=== PATIENT | male | born 1980 | race Caucasian/White ===

== ENCOUNTER 2024-09-28 23:20 | Inpatient (IN) | payer OTHER ==
[2024-09-29 00:49] LABS: VENOUS BASE EXCESS 1.4 mmol/L (-2-2); VENOUS O2 SATURATION 95.1 % (70-80); VENOUS PCO2 40.3 mmHg (38-52); VENOUS PH 7.425 (7.310-7.410)
[2024-09-29 01:26] LABS: BASO % 1.1 % (0-2.0); EOS % 2.5 % (0-4.5); HEMATOCRIT 38.3 % (35.4-49); HEMOGLOBIN 12.8 GM/dL (11.7-16.9); LYMPH % 28.6 % (8-40); MCH 33.1 pg (25.7-33.7); MCHC 33.5 g/dl (32.0-35.9); MEAN CELL VOLUME 98.9 fl (80-96); MEAN PLT VOLUME 7.5 fl (7.5-11.1); NEUT % 58.8 % (42.8-82.8); PLATELET COUNT 114 10^3/uL (134-434); RBC 3.87 M/mm3 (4.00-5.60); RDW 13.5 % (11.9-15.9); WHITE BLOOD COUNT 5.8 K/mm3 (4.0-10.0)
[2024-09-29 01:40] LABS: POTASSIUM 3.5 mmol/L (3.5-5.1)
[2024-09-29 01:42] LABS: ALBUMIN 3.4 g/dl (3.4-5.0); BLOOD UREA NITROGEN 8.1 mg/dL (7-18); CALCIUM 8.2 mg/dL (8.5-10.1); MAGNESIUM 2.1 mg/dL (1.8-2.4)
[2024-09-29 01:45] LABS: CREATININE 0.8 mg/dL (0.55-1.3)
[2024-09-29 01:46] LABS: PHOSPHOROUS 1.9 mg/dL (2.5-4.9)
[2024-09-29 01:47] LABS: BILIRUBIN,TOTAL 0.8 mg/dL (0.2-1)
[2024-09-29 01:49] LABS: TOT PROT 7.2 g/dl (6.4-8.2)
[2024-09-29 02:24] LABS: INR 1.19 (0.83-1.09); PROTHROMBIN TIME (PATIENT) 13.6 SEC (9.7-13.0)
[2024-09-29 02:27] LABS: ACTIVATED PTT 32.5 SECONDS (25.2-36.5)
[2024-09-29 02:38] LABS: HIV INTERPRETATION NEGATIVE (NEGATIVE)
[2024-09-29] MEDS ORDERED: LACTULOSE 20 GM/30 ML UDC (FOR ORAL USE ONLY) ONE ×2 (02:47→02:48)
[2024-09-29] MEDS: LACTULOSE 20 GM/30 ML UDC (FOR ORAL USE ONLY) PO ONE (02:52)
[2024-09-29] MEDS: LACTULOSE 20 GM/30 ML UDC (FOR ORAL USE ONLY) PO SCH (05:58)
[2024-09-29] MEDS ORDERED: LORazepam 1 MG TABLET PO PRN (06:23)
[2024-09-29] MEDS ORDERED: LORazepam 2 MG/ML SDV VIAL IVPUSH PRN (06:37)
[2024-09-29] MEDS ORDERED: LORazepam 2 MG/ML SDV VIAL ONE (06:44)
[2024-09-29] MEDS: SODIUM CHLORIDE 1,000 ML IV SCH (06:50)
[2024-09-29] MEDS: LORazepam 1 MG TABLET PO SCH (06:50)
[2024-09-29] MEDS: LORazepam 2 MG/ML SDV VIAL IVPUSH ONE (06:50)
[2024-09-29 07:44] LABS: BASO % 0.8 % (0-2.0); EOS % 3.1 % (0-4.5); HEMOGLOBIN 12.9 GM/dL (11.7-16.9); LYMPH % 26.4 % (8-40); MCH 34.1 pg (25.7-33.7); MCHC 34.8 g/dl (32.0-35.9); MEAN CELL VOLUME 98.1 fl (80-96); MEAN PLT VOLUME 7.6 fl (7.5-11.1); MONO % 8.8 % (3.8-10.2); NEUT % 60.9 % (42.8-82.8); PLATELET COUNT 100 10^3/uL (134-434); RBC 3.77 M/mm3 (4.00-5.60); RDW 13.4 % (11.9-15.9); WHITE BLOOD COUNT 4.3 K/mm3 (4.0-10.0)
[2024-09-29 07:55] LABS: POTASSIUM 3.5 mmol/L (3.5-5.1)
[2024-09-29 07:57] LABS: ALBUMIN 3.4 g/dl (3.4-5.0); BLOOD UREA NITROGEN 7.2 mg/dL (7-18)
[2024-09-29 08:00] LABS: CREATININE 0.8 mg/dL (0.55-1.3)
[2024-09-29 08:02] LABS: BILIRUBIN,TOTAL 0.8 mg/dL (0.2-1); TOT PROT 7.2 g/dl (6.4-8.2)
[2024-09-29] MEDS: FOLIC ACID INJECTION - 1 MG, THIAMINE HCL 100 MG, MULTIVIT INJECTION ADULT 10 ML in SOD... IVPB ONE (09:17)
[2024-09-29] MEDS ORDERED: NAPH,MB-DB/K PH,MBDB POWDER PACKET ONE (11:00)
[2024-09-29] MEDS: NAPH,MB-DB/K PH,MBDB POWDER PACKET PO ONE (11:03)
[2024-09-29] MEDS: THIAMINE 100 MG TABLET PO SCH (11:05)
[2024-09-29] MEDS: FOLIC ACID 1 MG TABLET (FP) PO SCH (11:05)
[2024-09-29] MEDS ORDERED: LACTULOSE 20 GM/30 ML UDC (FOR ORAL USE ONLY) PO SCH (14:00)
[2024-09-29 14:44] LABS: URINE APPEARANCE CLEAR; URINE BILIRUBIN NEGATIVE (NEGATIVE); URINE COLOR YELLOW; URINE GLUCOSE (UA) NEGATIVE (NEGATIVE); URINE KETONE NEGATIVE (NEGATIVE); URINE LEUK ESTERASE NEGATIVE (NEGATIVE); URINE NITRITE NEGATIVE (NEGATIVE); URINE PROTEIN NEGATIVE (NEGATIVE)
[2024-09-29 15:03] LABS: OPIATES, URI NEGATIVE (NEGATIVE)
[2024-09-29 15:04] LABS: COCAINE, UR NEGATIVE (NEGATIVE); METHADONE, UR NEGATIVE (NEGATIVE); PHENCYCLIDINE,URINE NEGATIVE (NEGATIVE)
[2024-09-29 15:05] LABS: URINE AMPHETAMINES NEGATIVE (NEGATIVE)
[2024-09-29 15:06] LABS: URINE BARBITURATES NEGATIVE (NEGATIVE)
[2024-09-29 15:09] LABS: URINE BENZODIAZEPINES NEGATIVE (NEGATIVE)
[2024-09-29 18:22] VITALS: BMI 46.7
[2024-09-29] MEDS ORDERED: RIFAXIMIN 550 MG TABLET PO SCH (22:00)
[2024-09-29] MEDS: LORazepam 2 MG/ML SDV VIAL IVPUSH PRN (23:01)
[2024-09-30] MEDS ORDERED: LORazepam 1 MG TABLET PO SCH (05:00)
[2024-09-30 06:02] VITALS: RESP 18
[2024-09-30 07:53] LABS: BASO % 1.4 % (0-2.0); HEMATOCRIT 39.3 % (35.4-49); HEMOGLOBIN 13.1 GM/dL (11.7-16.9); MCH 32.9 pg (25.7-33.7); MCHC 33.5 g/dl (32.0-35.9); MEAN CELL VOLUME 98.4 fl (80-96); MEAN PLT VOLUME 7.7 fl (7.5-11.1); MONO % 8.9 % (3.8-10.2); NEUT % 62.7 % (42.8-82.8); PLATELET COUNT 93 10^3/uL (134-434); RBC 3.99 M/mm3 (4.00-5.60); RDW 13.3 % (11.9-15.9)
[2024-09-30 08:07] LABS: POTASSIUM 3.6 mmol/L (3.5-5.1)
[2024-09-30 08:12] LABS: BLOOD UREA NITROGEN 8.1 mg/dL (7-18)
[2024-09-30 08:14] LABS: CALCIUM 8.3 mg/dL (8.5-10.1)
[2024-09-30 08:15] LABS: ALBUMIN 3.1 g/dl (3.4-5.0); MAGNESIUM 1.8 mg/dL (1.8-2.4)
[2024-09-30 08:17] LABS: CREATININE 0.7 mg/dL (0.55-1.3); PHOSPHOROUS 2.7 mg/dL (2.5-4.9)
[2024-09-30 08:18] LABS: BILIRUBIN,TOTAL 2.3 mg/dL (0.2-1)
[2024-09-30 08:19] LABS: TOT PROT 6.9 g/dl (6.4-8.2)
[2024-09-30 08:21] LABS: INR 1.35 (0.83-1.09); PROTHROMBIN TIME (PATIENT) 15.4 SEC (9.7-13.0)
[2024-09-30 13:00] LABS: BILIRUBIN,DIRECT 0.6 mg/dL (0.0-0.2)
[2024-09-30 15:33] VITALS: BP 147/84; PULSE 101; TEMP 98
[2024-10-01] MEDS ORDERED: LORazepam 0.5 MG TABLET PO PRN
[2024-10-01] MEDS ORDERED: LORazepam 0.5 MG TABLET PO SCH (05:00)
[2024-10-02] MEDS ORDERED: LORazepam 0.5 MG TABLET PO ONE (05:00)
== END 2024-09-30 16:00 | disposition left against medical advice (07) | DRG 442 ==
LOC: JER 23:20 → JERBED 09-29 04:21 → J4W 09-29 16:40
PROVIDERS: ADMIT Internal Medicine; ATTEND Internal Medicine
DX: K76.82 Hepatic encephalopathy (principal); F10.239 Alcohol dependence with withdrawal, unspecified; Z68.42 Body mass index [BMI] 45.0-49.9, adult; K70.30 Alcoholic cirrhosis of liver without ascites; I10 Essential (primary) hypertension; D69.6 Thrombocytopenia, unspecified; E78.5 Hyperlipidemia, unspecified; R41.82 Altered mental status, unspecified; R31.9 Hematuria, unspecified; E66.01 Morbid (severe) obesity due to excess calories; R00.0 Tachycardia, unspecified
CPT/HCPCS: 0241U-QW; 36415; 71045-TC-FY; 71250-TC; 74177-TC; 76705-TC; 80053; 80307; 81003; 82140; 82248; 82803; 83605; 83690; 83735; 84100; 84484; 85025; 85610; 85730; 86480; 86704; 86708; 86803; 86850; 86900; 86901; 87040; 87081; 87340; 87389; 87517; 93005; 93010; 99285-25; Q9967

== ENCOUNTER 2025-03-25 22:45 | Emergency (ER) | payer OTHER ==
[2025-03-25 22:52] VITALS: RESP 20; BMI 43.2
[2025-03-26 00:14] LABS: ABSOLUTE IMMATURE GRANULOCYTES 0.01 x10^3/uL (0.0-0.031); BASOPHILS # 0.07 x10^3/uL (0.01-0.08); EOSINOPHILS # 0.21 x10^3/uL (0.04-0.54); HEMOGLOBIN 12.3 g/dL (13.7-17.5); MCHC 33.2 g/dl (32.3-36.5); MEAN CELL VOLUME 102.2 fl (79.0-92.2); MEAN PLT VOLUME 9.5 fl (9.4-12.4); MONOCYTE # 0.57 x10^3/uL (0.30-0.82); MONOCYTE % 8.3 % (5.3-12.2); PLATELET COUNT 87 x10^3/uL (163-337); RDW 14.1 % (12.1-15.9)
[2025-03-26 00:16] LABS: PH,URINE 6.5 (5.0-8.0); URINE APPEARANCE CLEAR; URINE BILIRUBIN 1+ (NEGATIVE); URINE COLOR DK YELLOW; URINE GLUCOSE (UA) NEGATIVE (NEGATIVE); URINE KETONE TRACE (NEGATIVE); URINE LEUK ESTERASE NEGATIVE (NEGATIVE); URINE NITRITE NEGATIVE (NEGATIVE); URINE PROTEIN NEGATIVE (NEGATIVE); URINE UROBILINOGEN 4.0 E.U/dl mg/dL (0.2-1.0)
[2025-03-26] MEDS ORDERED: PANTOPRAZOLE SODIUM 40 MG VIAL ONE (00:27)
[2025-03-26] MEDS: PANTOPRAZOLE SODIUM 40 MG VIAL IVPUSH ONE (00:33)
[2025-03-26 00:35] LABS: POTASSIUM 3.1 mmol/L (3.5-5.1)
[2025-03-26 00:37] LABS: CALCIUM 9.1 mg/dL (8.5-10.1)
[2025-03-26 00:38] LABS: BLOOD UREA NITROGEN 8.5 mg/dL (7-18)
[2025-03-26 00:40] LABS: CREATININE 0.9 mg/dL (0.55-1.3)
[2025-03-26 00:42] LABS: BILIRUBIN,TOTAL 2.5 mg/dL (0.2-1); TOT PROT 7.9 g/dl (6.4-8.2)
[2025-03-26 00:47] VITALS: BP 108/55; PULSE 102; TEMP 98.4
[2025-03-26] MEDS ORDERED: POTASSIUM CHLORIDE ORAL LIQUID 20 MEQ/15 ML ONE (01:21)
[2025-03-26] MEDS: POTASSIUM CHLORIDE ORAL LIQUID 20 MEQ/15 ML PO ONE (01:22)
[2025-03-26 01:41] LABS: HCV DIAGNOSTIC IN-HOUSE W/RFLX NON-REACTIVE (NONREACTIVE); HIV INTERPRETATION NEGATIVE (NEGATIVE)
== END 2025-03-26 01:32 | disposition home or self-care (01) ==
LOC: JER 22:45
PROC: 3E033GC Introduction of Other Therapeutic Substance into Peripheral Vein, Percutaneous Approach (ICD-10-PCS; principal; 2025-03-25)
DX: K74.60 Unspecified cirrhosis of liver (principal); K62.5 Hemorrhage of anus and rectum; R31.9 Hematuria, unspecified; F41.9 Anxiety disorder, unspecified; R60.0 Localized edema
CPT/HCPCS: 36415; 80053; 81003; 82140; 83605; 83690; 83735; 85025; 86803; 86850; 86900; 86901; 87086; 87389; 99284-25

== ENCOUNTER 2025-04-13 00:46 | Inpatient (IN) | payer OTHER ==
[2025-04-13 02:32] LABS: BG HCT 37.0 % (35.4-49); VENOUS BASE EXCESS 0.3 mmol/L (-2-2); VENOUS O2 SATURATION 90.1 % (70-80); VENOUS PCO2 34.3 mmHg (38-52); VENOUS PH 7.457 (7.310-7.410)
[2025-04-13 02:37] LABS: ABSOLUTE IMMATURE GRANULOCYTES 0.03 x10^3/uL (0.0-0.031); BASOPHILS # 0.05 x10^3/uL (0.01-0.08); EOSINOPHIL % 2.3 % (0.8-7.0); EOSINOPHILS # 0.09 x10^3/uL (0.04-0.54); MCHC 33.4 g/dl (32.3-36.5); MEAN CELL VOLUME 101.2 fl (79.0-92.2); MEAN PLT VOLUME 9.4 fl (9.4-12.4); MONOCYTE # 0.36 x10^3/uL (0.30-0.82); MONOCYTE % 9.0 % (5.3-12.2); RDW 14.4 % (12.1-15.9)
[2025-04-13 02:42] LABS: INR 1.56 (0.83-1.09); PROTHROMBIN TIME (PATIENT) 17.0 SEC (9.7-13.0)
[2025-04-13 02:45] LABS: ACTIVATED PTT 35.9 SECONDS (25.2-36.5)
[2025-04-13 02:53] LABS: CO2 25.0 mmol/L (21-32); GLUCOSE,RANDOM 124.0 mg/dL (74-106)
[2025-04-13 02:56] LABS: CREATININE 0.6 mg/dL (0.55-1.3); SGOT/AST 253.0 U/L (15-37); SGPT/ALT 54.0 U/L (13-61)
[2025-04-13 02:58] LABS: TOT PROT 7.5 g/dl (6.4-8.2)
[2025-04-13 02:59] LABS: ALK PHOS 175.0 U/L (45-117)
[2025-04-13] MEDS ORDERED: POTASSIUM CHLORIDE ORAL LIQUID 20 MEQ/15 ML ONE (03:00)
[2025-04-13 03:01] LABS: N-TERMINAL BNP 166.8 pg/ml (5-125)
[2025-04-13] MEDS: POTASSIUM CHLORIDE ORAL LIQUID 20 MEQ/15 ML PO ONE (03:13)
[2025-04-13] MEDS ORDERED: CEFTRIAXONE 1 GM/50 ML BAG ONE ×2 (03:21→03:24)
[2025-04-13] MEDS: CEFTRIAXONE 500 MG in DEXTROSE 5%-WATER - 50 ML IVPB ONE (03:32)
[2025-04-13] MEDS ORDERED: MELATONIN 5 MG TABLETS ONE (03:58)
[2025-04-13] MEDS ORDERED: FAMOTIDINE 20 MG/50 ML IVPB 20 MG/50 ML MG IVPB ONE (03:58)
[2025-04-13] MEDS ORDERED: VANCOMYCIN 1 GM PREMIX (F) 1 GM/200 ML BAG ONE (04:03)
[2025-04-13] MEDS ORDERED: MAGNESIUM SULFATE IN WATER 2 GM/50 ML IVPB IVPB ONE (04:03)
[2025-04-13] MEDS: MAGNESIUM SULFATE IN WATER 2 GM/50 ML IVPB IVPB ONE (04:04)
[2025-04-13] MEDS: MELATONIN 5 MG TABLETS PO ONE (04:04)
[2025-04-13] MEDS: FAMOTIDINE 20 MG/50 ML IVPB 20 MG/50 ML MG IVPB ONE (04:30)
[2025-04-13 04:50] LABS: URINE APPEARANCE CLEAR; URINE BILIRUBIN NEGATIVE (NEGATIVE); URINE COLOR DK YELLOW; URINE GLUCOSE (UA) NEGATIVE (NEGATIVE); URINE KETONE NEGATIVE (NEGATIVE); URINE LEUK ESTERASE NEGATIVE (NEGATIVE); URINE NITRITE NEGATIVE (NEGATIVE); URINE PROTEIN NEGATIVE (NEGATIVE); URINE UROBILINOGEN 2.0 mg/dL (0.2-1.0)
[2025-04-13] MEDS: VANCOMYCIN 1,000 MG in DEXTROSE 5%-WATER - 250 ML IVPB ONE (05:02)
[2025-04-13 07:13] LABS: ABSOLUTE IMMATURE GRANULOCYTES 0.03 x10^3/uL (0.0-0.031); BASOPHILS # 0.04 x10^3/uL (0.01-0.08); EOSINOPHIL % 3.5 % (0.8-7.0); EOSINOPHILS # 0.13 x10^3/uL (0.04-0.54); MCHC 32.9 g/dl (32.3-36.5); MEAN CELL VOLUME 102.3 fl (79.0-92.2); MEAN PLT VOLUME 9.7 fl (9.4-12.4); MONOCYTE # 0.29 x10^3/uL (0.30-0.82); MONOCYTE % 7.8 % (5.3-12.2); RDW 14.3 % (12.1-15.9)
[2025-04-13 07:24] LABS: CO2 25.0 mmol/L (21-32); GLUCOSE,RANDOM 131.0 mg/dL (74-106)
[2025-04-13 07:27] LABS: CREATININE 0.6 mg/dL (0.55-1.3); SGOT/AST 239.0 U/L (15-37); SGPT/ALT 53.0 U/L (13-61)
[2025-04-13 07:28] LABS: TOT PROT 7.5 g/dl (6.4-8.2)
[2025-04-13 07:29] LABS: ALK PHOS 176.0 U/L (45-117)
[2025-04-13] MEDS ORDERED: THIAMINE 100 MG TABLET ONE (09:17)
[2025-04-13] MEDS ORDERED: FUROSEMIDE 40 MG/4 ML INJECTABLE VIAL ONE (09:17)
[2025-04-13] MEDS ORDERED: FOLIC ACID 1 MG TABLET (FP) ONE (09:17)
[2025-04-13] MEDS ORDERED: LACTULOSE 20 GM/30 ML UDC (FOR ORAL USE ONLY) ONE (09:17)
[2025-04-13] MEDS: FUROSEMIDE 40 MG/4 ML INJECTABLE VIAL IVPUSH SCH (09:24)
[2025-04-13] MEDS: FOLIC ACID 1 MG TABLET (FP) PO SCH (09:24)
[2025-04-13] MEDS: LACTULOSE 20 GM/30 ML UDC (FOR ORAL USE ONLY) PO SCH (09:24)
[2025-04-13] MEDS: RIFAXIMIN 550 MG TABLET PO SCH (09:24)
[2025-04-13] MEDS: THIAMINE 100 MG TABLET PO SCH (09:24)
[2025-04-13] MEDS ORDERED: FUROSEMIDE 40 MG/4 ML INJECTABLE VIAL IVPUSH SCH (10:00)
[2025-04-13] MEDS ORDERED: SPIRONOLACTONE 25 MG TABLET PO SCH (10:00)
[2025-04-13] MEDS ORDERED: PHYTONADIONE 10 MG/1 ML AMP IVPB ONE (13:00)
[2025-04-13] MEDS: PHYTONADIONE 10 MG/1 ML AMP IVPB ONE (15:43)
[2025-04-13] MEDS: SODIUM PHOSPHATE - 15 MM in DEXTROSE 5%-WATER - 250 ML IVPB ONE (16:20)
[2025-04-13] MEDS: traZODone HCL 50 MG TABLET (FP) PO SCH (22:26)
[2025-04-14 08:12] LABS: ABSOLUTE IMMATURE GRANULOCYTES 0.02 x10^3/uL (0.0-0.031); BASOPHILS # 0.05 x10^3/uL (0.01-0.08); EOSINOPHIL % 3.0 % (0.8-7.0); EOSINOPHILS # 0.13 x10^3/uL (0.04-0.54); MCHC 32.0 g/dl (32.3-36.5); MEAN CELL VOLUME 103.3 fl (79.0-92.2); MEAN PLT VOLUME 10.6 fl (9.4-12.4); MONOCYTE # 0.44 x10^3/uL (0.30-0.82); MONOCYTE % 10.0 % (5.3-12.2); RDW 14.5 % (12.1-15.9)
[2025-04-14 08:45] LABS: CO2 27.0 mmol/L (21-32); GLUCOSE,RANDOM 97.0 mg/dL (74-106)
[2025-04-14 08:48] LABS: CREATININE 0.8 mg/dL (0.55-1.3); SGOT/AST 202.0 U/L (15-37); SGPT/ALT 46.0 U/L (13-61)
[2025-04-14 08:50] LABS: TOT PROT 7.4 g/dl (6.4-8.2)
[2025-04-14 08:51] LABS: ALK PHOS 173.0 U/L (45-117)
[2025-04-14 12:13] LABS: INR 1.64 (0.83-1.09); PROTHROMBIN TIME (PATIENT) 17.9 SEC (9.7-13.0)
[2025-04-14] MEDS: LACTULOSE 20 GM/30 ML UDC (FOR ORAL USE ONLY) PO SCH (13:09)
[2025-04-14] MEDS: POTASSIUM CHLORIDE ORAL LIQUID 20 MEQ/15 ML PO ONE (13:09)
[2025-04-14] MEDS: KCL 10 MEQ IVPB 10 MEQ/100 ML INFUS.BAG IVPB SCH (13:10)
[2025-04-14] MEDS: SPIRONOLACTONE 25 MG TABLET PO SCH (13:10)
[2025-04-14] MEDS: CARVEDILOL 3.125 MG TABLET (FP) PO SCH (21:25)
[2025-04-15 10:52] LABS: BASOPHILS # 0.05 x10^3/uL (0.01-0.08); MCHC 32.3 g/dl (32.3-36.5); MEAN PLT VOLUME 10.0 fl (9.4-12.4)
[2025-04-15 10:54] LABS: ABSOLUTE IMMATURE GRANULOCYTES 0.01 x10^3/uL (0.0-0.031); EOSINOPHIL % 4.4 % (0.8-7.0); EOSINOPHILS # 0.22 x10^3/uL (0.04-0.54); IMMATURE PLATELET FRACTION # 1.20 x10^3/uL; MEAN CELL VOLUME 104.1 fl (79.0-92.2); MONOCYTE # 0.51 x10^3/uL (0.30-0.82); MONOCYTE % 10.3 % (5.3-12.2); RDW 14.7 % (12.1-15.9)
[2025-04-15 11:17] LABS: CO2 27.0 mmol/L (21-32); GLUCOSE,RANDOM 95.0 mg/dL (74-106); INR 1.68 (0.83-1.09); PROTHROMBIN TIME (PATIENT) 18.5 SEC (9.7-13.0)
[2025-04-15 11:20] LABS: CREATININE 1.0 mg/dL (0.55-1.3); SGPT/ALT 45.0 U/L (13-61)
[2025-04-15 11:21] LABS: SGOT/AST 193.0 U/L (15-37)
[2025-04-15 11:22] LABS: TOT PROT 7.6 g/dl (6.4-8.2)
[2025-04-15 11:23] LABS: ALK PHOS 166.0 U/L (45-117)
[2025-04-15] MEDS: POTASSIUM CHLORIDE ORAL LIQUID 20 MEQ/15 ML PO ONE (13:37)
[2025-04-15 14:24] VITALS: RESP 18
[2025-04-15 15:48] VITALS: BMI 44.2
[2025-04-16 08:39] LABS: BASOPHILS # 0.04 x10^3/uL (0.01-0.08)
[2025-04-16 08:41] LABS: ABSOLUTE IMMATURE GRANULOCYTES 0.02 x10^3/uL (0.0-0.031); EOSINOPHIL % 4.6 % (0.8-7.0); EOSINOPHILS # 0.25 x10^3/uL (0.04-0.54); IMMATURE PLATELET FRACTION # 1.20 x10^3/uL; MCHC 31.6 g/dl (32.3-36.5); MEAN CELL VOLUME 105.1 fl (79.0-92.2); MEAN PLT VOLUME 10.0 fl (9.4-12.4); MONOCYTE # 0.54 x10^3/uL (0.30-0.82); MONOCYTE % 9.9 % (5.3-12.2); RDW 14.7 % (12.1-15.9)
[2025-04-16 09:25] LABS: CO2 26.0 mmol/L (21-32); GLUCOSE,RANDOM 95.0 mg/dL (74-106)
[2025-04-16 09:28] LABS: CREATININE 1.0 mg/dL (0.55-1.3); SGOT/AST 173.0 U/L (15-37); SGPT/ALT 48.0 U/L (13-61)
[2025-04-16 09:30] LABS: TOT PROT 7.8 g/dl (6.4-8.2)
[2025-04-16 09:31] LABS: ALK PHOS 171.0 U/L (45-117)
[2025-04-16 10:06] LABS: INR 1.67 (0.83-1.09); PROTHROMBIN TIME (PATIENT) 18.2 SEC (9.7-13.0)
[2025-04-16] MEDS: PHYTONADIONE 10 MG/1 ML AMP IVPB ONE (10:32)
[2025-04-16 11:47] VITALS: BP 118/67; PULSE 89; TEMP 98.5
== END 2025-04-16 11:55 | disposition left against medical advice (07) | DRG 433 ==
LOC: JER 00:46 → JERBED 03:54 → J7W 14:46
PROVIDERS: ADMIT Internal Medicine
DX: K70.11 Alcoholic hepatitis with ascites (principal); F10.239 Alcohol dependence with withdrawal, unspecified; Z68.41 Body mass index [BMI] 40.0-44.9, adult; K70.31 Alcoholic cirrhosis of liver with ascites; E66.9 Obesity, unspecified; R07.89 Other chest pain; R16.2 Hepatomegaly with splenomegaly, not elsewhere classified; K76.82 Hepatic encephalopathy; E78.5 Hyperlipidemia, unspecified
CPT/HCPCS: 36415; 71045-TC-FY; 74181-TC; 76700-TC; 80053; 80307; 81003; 82105; 82140; 82248; 82607; 82746; 82803; 82977; 83690; 83735; 83880; 84100; 84484; 85025; 85610; 85730; 86850; 86900; 86901; 87086; 93005; 93010; 93306-TC; 93970-TC; 93975; 97116-GP; 97162-GP; 99285-25